=== PATIENT | male | born 1995 | race Caucasian/White ===

== ENCOUNTER 2023-06-15 06:09 | Day surgery (SDC) | payer OTHER, SELFPAY ==
[2023-06-15] VITALS (7 sets, daily range): BP systolic 101–115; BP diastolic 51–70; BMI 23.5
[2023-06-15] MEDS: CELEBREX 200 MG PO (07:03)
[2023-06-15] MEDS: TYLENOL 1000 MG PO (07:03)
[2023-06-15] MEDS: NORMOSOL-R 1000 IV (07:04)
[2023-06-15] MEDS: DEMEROL 12.5 MG IV (09:08)
== END 2023-06-15 10:56 | disposition home or self-care (01) ==
LOC: SDS 06:09
PROVIDERS: ATTENDING PHYSICIAN Orthopaedic Surgery
DX: S52.511A Displaced fracture of right radial styloid process, initial encounter for closed fracture (principal); V87.9XXA Person injured in other specified (collision)(noncollision) transport accidents involving nonmotor vehicle (traffic), initial encounter
CPT/HCPCS: 25608; C1713